=== PATIENT | male | born 1975 | race Caucasian/White ===

== ENCOUNTER 2016-05-08 21:12 | Emergency (ER) | payer OTHER | END 2016-05-08 22:38 | disposition home or self-care (01) | LOC: ER 21:12 | DX: S16.1XXA Strain of muscle, fascia and tendon at neck level, initial encounter (principal); V49.49XA Driver injured in collision with other motor vehicles in traffic accident, initial encounter; Y92.488 Other paved roadways as the place of occurrence of the external cause; Z87.891 Personal history of nicotine dependence | CPT/HCPCS: 70450; 72125 ==